=== PATIENT | male | born 1970 | race Two or more races ===

== ENCOUNTER → 2020-11-09 09:51 | Outpatient (BNVA) | payer MEDICAID, SELFPAY | PROVIDERS: PCP Internal Medicine; Visit Provider Orthopaedic Surgery | DX: M25.561 Pain in right knee (principal); M25.572 Pain in left ankle and joints of left foot; M25.461 Effusion, right knee; I10 Essential (primary) hypertension; Z88.0 Allergy status to penicillin | CPT/HCPCS: 99202 ==

== ENCOUNTER 2020-11-17 19:18 | Outpatient (REF) | payer MEDICAID, SELFPAY ==
--- NOTE | ~2020-11-17 | MR_ITS ---
EXAMINATION: MR KNEE WITHOUT CONTRAST, RIGHT CLINICAL INFORMATION: Right knee effusion. COMPARISON: None TECHNIQUE: MRI of the knee without contrast was performed using routine sequences on a high-field scanner. FINDINGS: MENISCI: Medial Meniscus: Intact. Lateral Meniscus: A bucket-handle tear propagates from the anterior root insertion through the posterior root insertion with displacement of the fragment into the intercondylar notch. The flap fragment constitutes the majority of the lateral meniscus with minimal residual orthotopic meniscal tissue at the posterior horn, body, and anterior horn. LIGAMENTS: Cruciate: The ACL is distorted by the adjacent bucket-handle fragment. No appreciable ACL tears, though sensitivity for mild laxity is limited by the slight deformation of the normal contour produced by the mass effect. PCL is normal. Collateral: Collateral ligaments are intact. Mild tendinosis at the popliteus origin. No tears. EXTENSOR MECHANISM: Marked heterogeneous thickening of the patellar tendon is noted, most consistent with a prior repair or patellar ORIF. Adjacent linear tracks are evident within the patella at the site of fixation. There is a residual longitudinal defect within the lateral fibers of the patellar tendon measuring 7 x 6 mm in cross section, corresponding to approximately 10 percent of the overall tendon cross-section. Fat from Hoffa's fat pad herniates into this defect. No acute tears. Quadriceps tendon is normal. Postsurgical scar tissue is evident with Hoffa's fat pad. At the anterolateral aspect of Hoffa's fat pad at the joint line, there is a rounded 1 x 0.8 x 0.8 cm focus of low signal intensity which may correspond to scar tissue. A chondral loose body is possible, though less likely. ARTICULAR CARTILAGE/BONE: Patellofemoral Compartment: There is mild nonuniform chondral thinning at the patella and trochlea with small marginal osteophytes. Medial Compartment: Tiny marginal osteophytes. Articular cartilage appears normal. Subcortical cystic changes of the tibial spines are likely related to the cruciate ligament insertions and may reflect early changes of mucoid degeneration. Lateral Compartment: There is severe articular cartilage loss at the posterior half of the lateral tibial plateau over an area measuring edema and cystic change. There is a small 3 x 5 cm partial-thickness chondral defect at the lateral third of the lateral femoral condyle weightbearing surface. More mild chondral thinning is present at the posterior nonweightbearing surface with focal full-thickness chondral fissuring superiorly as well as associated subchondral edema. JOINT FLUID AND BURSAE: Trace joint effusion. No Fry's cyst. MR/MR knee RT wo con IMPRESSION: 1. Displaced bucket-handle tear of the lateral meniscus involving the majority of the meniscal tissue. 2. [id number] lateral compartment osteoarthritis with high-grade cartilage loss at the posterior half of the lateral tibial plateau. 3. Minimal patellofemoral compartment osteoarthritis. 4. Postsurgical changes of the patellar tendon with a small residual longitudinal defect in the lateral fibers involving less than 10 percent of the tendon cross-section. No new tears. 5. A round 1 cm focus of low signal intensity material at the anterolateral margin of the joint line within Hoffa's fat pad, possibly scar tissue or a small loose body.
== END 2020-11-17 19:19 | disposition home or self-care (01) ==
LOC: HO.MRI 19:18
PROVIDERS: Visit Provider Orthopaedic Surgery
DX: M25.461 Effusion, right knee (principal)
CPT/HCPCS: 73721

== ENCOUNTER → 2020-11-23 09:10 | Outpatient (BNVA) | payer MEDICAID, SELFPAY | PROVIDERS: Visit Provider Orthopaedic Surgery | DX: M25.461 Effusion, right knee (principal) | CPT/HCPCS: 99212 ==

== ENCOUNTER 2022-02-25 15:10 | Outpatient (REF) | payer MEDICAID, SELFPAY ==
--- NOTE | ~2022-02-25 | XR_ITS ---
EXAMINATION: XR HAND, LEFT CLINICAL INFORMATION: Left finger pain. COMPARISON: None TECHNIQUE: PA, lateral, and oblique views of the left hand. FINDINGS: The bones and soft tissues are normal. No fracture. Alignment is anatomic. Joint spaces are maintained. A tiny periventricular calcifications is seen at the interphalangeal joint of the left thumb. No erosions or soft tissue calcifications. XR/XR hand LT min 3V IMPRESSION: Unremarkable left hand.
== END 2022-02-25 15:11 | disposition home or self-care (01) ==
LOC: HO.XRAY 15:10
PROVIDERS: Visit Provider Internal Medicine
DX: M79.645 Pain in left finger(s) (principal)
CPT/HCPCS: 73130

== ENCOUNTER 2022-03-29 11:33 | Outpatient (REF) | payer MEDICAID, SELFPAY ==
--- NOTE | ~2022-03-29 | XR_ITS ---
EXAMINATION: LUMBAR SPINE AND LEFT SHOULDER CLINICAL INFORMATION: Pain left shoulder COMPARISON: None TECHNIQUE: 3 views lumbar spine and 4 views left shoulder FINDINGS: Left shoulder: There is mild loss of AC joint and glenohumeral joint with inferior periarticular spurring glenohumeral and superior AC joint. No soft tissue calcification seen. No visible acute fracture, lytic or sclerotic process seen. The soft tissues are normal. XR/XR lumbar spine 2-3V IMPRESSION: Degenerative arthritic changes left AC joint and left glenohumeral joint. No visible acute fracture or dislocation seen.
--- NOTE | ~2022-03-29 | XR_ITS ---
EXAMINATION: LUMBAR SPINE AND LEFT SHOULDER CLINICAL INFORMATION: Pain left shoulder COMPARISON: None TECHNIQUE: 3 views lumbar spine and 4 views left shoulder FINDINGS: Left shoulder: There is mild loss of AC joint and glenohumeral joint with inferior periarticular spurring glenohumeral and superior AC joint. No soft tissue calcification seen. No visible acute fracture, lytic or sclerotic process seen. The soft tissues are normal. XR/XR shoulder LT min 2V IMPRESSION: Degenerative arthritic changes left AC joint and left glenohumeral joint. No visible acute fracture or dislocation seen.
== END 2022-03-29 11:34 | disposition home or self-care (01) ==
LOC: HO.XRAY 11:33
PROVIDERS: Visit Provider Internal Medicine
DX: M25.512 Pain in left shoulder (principal); M51.9 Unspecified thoracic, thoracolumbar and lumbosacral intervertebral disc disorder
CPT/HCPCS: 72100; 73030

== ENCOUNTER 2022-11-04 13:04 | Emergency (ER) | payer MEDICAID, SELFPAY ==
--- NOTE | ~2022-11-04 | US_ITS ---
EXAMINATION: US VENOUS ULTRASOUND WITH DOPPLER LOWER EXTREMITY, RIGHT CLINICAL INFORMATION: Right calf pain. COMPARISON: None available. TECHNIQUE: Ultrasound of the deep veins is performed from the hip to the calf with compression sonography and color and pulse Doppler assessment. Spectral analysis with color-flow imaging is performed. FINDINGS: There is normal venous compression and respiratory variation and augmented flow. The visualized common femoral vein, superficial femoral vein, profunda femoral vein, popliteal vein, and the trifurcation region shows no evidence of deep venous thrombosis. There is no significant popliteal fossa cyst. If the patient's symptoms persist, followup ultrasound in 5 days 7 days might be of value to exclude proximal propagation from a non-visualized calf vein. US/US venous duplex LE RT IMPRESSION: No DVT demonstrated in the right lower extremity.
--- NOTE | 2022-11-04 13:32 | ED_ITS ---
HPI - Extremity Problem General Chief complaint: Extremity Injury, Lower Stated complaint: Chronic R Leg Pain Time Seen by Provider: 11/04/22 13:17 History of Present Illness HPI Narrative: 52-year-old male the past medical history a septic bursa requiring 2 right knee surgeries and chronic right knee pain presents to the emergency department with complaints of worsening posterior knee and calf pain with minor swelling. He reports he was cleaning floors several days ago which exacerbated his knee pain. He reports he has been resting, compressing, ice, and elevating his leg in addition to taking [id number]-[id number] ibuprofen with little relief in pain. He denies any paresthesias, changes in gait or range of motion, fever, chills, recent trauma or injury. Pertinent positives and negatives discussed HPI. Related Data Home Medications Medication Instructions Recorded Confirmed lisinopril 20 mg tablet 20 mg PO DAILY 11/09/20 Previous Rx's Medication Instructions Recorded ibuprofen 800 mg tablet 800 mg PO TID PRN for pain #90 tabs 12/18/20 Allergies Allergy/AdvReac Type Severity Reaction Status Date / Time Penicillins [PENICILLINS] Allergy Intermediate HIVES Unverified 11/23/20 09:16 Review of Systems Review of Systems: Yes all other systems are reviewed and are negative PMFSH Past Medical History Attestation statement: The following information was validated with the patient. Source: old records reviewed and nursing notes reviewed Medical History HTN (hypertension) Knee effusion, right Surgical History History of right knee surgery [facility] Social History Social History Alcohol intake: current Alcohol intake frequency: holidays/special occasions only Advance Directives: No Advance Directives Information Provided: Yes Current occupational status: unemployed Current occupation: right handed. Physical Exam Vital Signs: Vital Signs: Last Vital Signs Temp 98.3 F 11/04/22 13:36 Pulse 86 11/04/22 13:36 Resp 18 11/04/22 13:36 BP 132/81 11/04/22 13:36 Pulse Ox 98 11/04/22 13:36 O2 Del Method Room Air 11/04/22 13:36 BMI result Body Mass Index 31.1 Nursing notes and vital signs reviewed. GENERAL APPEARANCE: A&0 x 4, generally well appearing, no acute distress HENMT: Normal to inspection, atraumatic, face symmetrical. Normal external ears, nose, and oropharynx clear. EYE: PERRLA, EOM intact, structures appear normal NECK: Supple without lymphadenopathy. No stiffness or restricted ROM. CHEST: Normal to inspection HEART: Normal rate and regular rhythm, normal S1/S2, no M/R/G LUNGS: LS CTA, moving air well. Able to speak in complete sentences. No crackles, wheezes, or rhonchi auscultated ABDOMEN: Soft, nontender, nondistended. Normal bowel sounds noted BACK: No CVAT, no obvious deformity EXTREMITIES: Moving all extremities without difficulty. Pain with palpation at posterior right knee. Right calf slightly larger than left. No cyanosis, clubbing, or edema. Normal capillary refill. NEUROLOGICAL: Alert and oriented, moving all 4 extremities with equal strength. CN not formally tested but appearing grossly intact. Observed to ambulate with normal gait. Cognition normal SKIN: Warm and dry without any lesions, rash, or visible sores PSYCH: Cooperative, normal affect, normal thought process Medications Administered Discontinued Medications Generic Name Dose Route Start Last Admin Trade Name Freq PRN Reason Stop Dose Admin Ketorolac Tromethamine 15 mg 11/04/22 13:30 11/04/22 13:58 Ketorolac Tromethamine 15 Mg/Ml Vial IM 11/04/22 13:31 15 mg ONCE ONE Administration Medical Decision Making Medical Decision Making [facility] Narrative: 1320: Old records reviewed for previous imaging, lab studies, ECGs, or notes. Patient was assessed the emergency department. No acute distress or toxicity noted. Patient is A&O x4, LS CTA, BABB x4 with good strength. Based on HPI and PE plan for toradol for c/o pain and US RLE to r/o DVT. 1425: I have independently interpreted the US RLE as negative for DVT. Pt symptoms are consistent with right knee strain. Low suspicion for tendon or ligament injury, fracture, dislocation, or infection. Patient is safe for discharge at this time with plan for [id number] Tylenol and/or NSAID such as ibuprofen or naproxen for fever/discomfort with dosing as per packaging. HPI, PE, diagnostics, and plan discussed with patient and family with no unanswered questions at this time. Strict return precautions given to return to the emergency department with new, worsening, or concerning emergent symptoms. Recommended to follow-up with there primary care provider in 24-48 hours for further treatment and management. Differential Diagnosis See above Discharge Plan Discharge Clinical Impression: Strain of right knee, Knee pain, right Patient Disposition: Home, Self-Care Instructions: Knee Pain (ED), R.I.C.E. Treatment (ED) Additional Instructions: Your seen in the emergency department for concerns Of right knee pain. Your ultrasound showed no signs of clots in the calf. Your symptoms are consistent with a right knee strain and exacerbation of chronic right knee pain. You are safe for discharge at this time with plan for management of fever or discomfort with [id number]-rtw-nripiht Tylenol and/or NSAID such as ibuprofen or naproxen with dosing as per packaging. Please return to the emergency department with new, worsening, or concerning emergent symptoms. Recommended to follow-up with your primary care provider in 24-48 hours for further treatment and management. Thank you for choosing [facility]. Prescriptions: No Action ibuprofen 800 mg tablet 800 mg PO TID PRN (Reason: for pain) Qty: 90 0RF lisinopril 20 mg tablet 20 mg PO DAILY Referrals: Uzma Matos MD [Primary Care Provider] - Print Language: Turkish
[2022-11-04 13:36] VITALS: BP 132/81; PULSE 86; RESP 18; TEMP 36.8; O2SAT 98; BMI 31.1
[2022-11-04] MEDS: Ketorolac Tromethamine 15 MG/ML VIAL IM (13:58)
== END 2022-11-04 14:34 | disposition home or self-care (01) ==
PROVIDERS: Emergency Provider Emergency Medicine Emergency Medical Services; PCP Internal Medicine
DX: M25.561 Pain in right knee (principal); R60.0 Localized edema
CPT/HCPCS: 93971; 96372; 99283; 99284; J1885

== ENCOUNTER 2022-11-15 16:41 | Outpatient (REF) | payer MEDICAID, SELFPAY ==
--- NOTE | ~2022-11-15 | XR_ITS ---
EXAMINATION: XR KNEE, RIGHT CLINICAL INFORMATION: Acute pain of right knee COMPARISON: MR scan right knee 11/17/2020 TECHNIQUE: Four views of the right knee. FINDINGS: The bones are intact. No fracture. Small joint effusion. Alignment is anatomic. There is mild narrowing of the patellofemoral joint compartment with marginal osteophyte formation. There is moderate to marked joint space narrowing of the lateral joint compartment. Tricompartment marginal osteophytes. There is marked soft tissue swelling inferior to the patella. There is a 0.6 cm density in the anterior aspect of Hoffa's fat pad which may represent a loose body within the joint. XR/XR knee RT 4V IMPRESSION: 1. Marked soft tissue swelling inferior to the patella. 2. Moderate to marked osteoarthritis of the lateral joint compartment and mild osteoarthritis of the patellofemoral joint compartment. 3. Question of loose body within the joint.
== END 2022-11-15 16:42 | disposition home or self-care (01) ==
LOC: HO.XRAY 16:41
PROVIDERS: Absent Provider Internal Medicine; PCP Internal Medicine; Visit Provider Family Medicine
DX: M25.561 Pain in right knee (principal)
CPT/HCPCS: 73564

== ENCOUNTER 2022-11-24 11:26 | Outpatient (REF) | payer MEDICAID, SELFPAY ==
--- NOTE | ~2022-11-24 | MR_ITS ---
EXAMINATION: MR KNEE WITHOUT CONTRAST, RIGHT CLINICAL INFORMATION: Medial right knee pain and crepitus. Swelling. Prior surgery. COMPARISON: Most recent right knee radiographs dated 11/15/2022 and right knee MRI dated 11/17/2020. TECHNIQUE: MRI of the knee without contrast was performed using routine sequences on a high-field scanner. FINDINGS: MENISCI: Medial Meniscus: Intact Lateral Meniscus: Redemonstration of a lateral meniscus bucket-handle tear with the majority of the meniscal volume displaced centrally. Tearing extends from the anterior root to the posterior root with significant attenuation and complex tearing of the non-displaced meniscal tissue. Overall, tearing appears similar when compared to the MRI dated 11/17/2020. LIGAMENTS: Cruciate: No evidence of acute ligament injury. Collateral: Intact EXTENSOR MECHANISM: Diffuse thickening and post surgical change redemonstrated throughout the patellar tendon, similar when compared to the prior examination. There is heterogeneity distally, slightly increased which may represent tendinosis. No new tendon tear or tendon retraction. ARTICULAR CARTILAGE/BONE: Patellofemoral Compartment: Mild articular cartilage signal heterogeneity with tiny marginal osteophytes, unchanged. Medial Compartment: Mild articular cartilage signal heterogeneity with tiny marginal osteophytes, unchanged. Lateral Compartment: Posterior lateral tibial plateau full-thickness articular cartilage loss with underlying subchondral cystic change. Posterior non-weightbearing lateral femoral condyle articular cartilage signal heterogeneity with subchondral cystic change. Marginal osteophytes. Findings are slightly progressed when compared to the prior examination. JOINT FLUID AND BURSAE: Trace joint effusion and trace Fry's cyst. MR/MR knee RT wo con IMPRESSION: 1. Redemonstration of a lateral meniscus bucket-handle tear with the majority of the meniscal volume displaced centrally. Tearing extends from the anterior root to the posterior root with significant attenuation and complex tearing of the nondisplaced meniscal tissue. Overall, tearing appears similar when compared to the MRI dated 11/17/2020. 2. Post surgical change redemonstrated throughout the patellar tendon with mild distal tendinosis, slightly increased when compared to the prior examination. No new tendon tear or tendon retraction. 3. Moderate lateral compartment osteophyte arthritis, slightly progressed. Mild patellofemoral and medial compartment osteoarthritis, unchanged. Trace joint effusion and trace Fry's cyst.
== END 2022-11-24 11:27 | disposition home or self-care (01) ==
LOC: HO.MRI 11:26
PROVIDERS: PCP Internal Medicine; Visit Provider Family Medicine
DX: M25.561 Pain in right knee (principal)
CPT/HCPCS: 73721

== ENCOUNTER 2023-05-30 11:07 | Outpatient (REF) | payer MEDICAID, SELFPAY ==
[2023-05-30 14:42] LABS: Appearance Urine Clear; Color Urine Yellow; Glucose Urine UA Negative (Negative); Leukocyte Esterase Urine Negative (Negative); Nitrite Urine Negative (Negative); Specific Gravity - Urine >= 1.030 (1.005-1.025); Urine Blood Negative (Negative); Urine Ketones Trace mg/dL (Negative); Urine Protein Negative (Neg-Trace)
[2023-05-30 14:44] LABS: Bacteria Urine None Seen (None Seen); Hyaline Casts Urine 0-2 /LPF (0-2); RBC Urine 0-2 /HPF (0-2); Squamous Epithelial Cell Urine 0-2 /HPF (0-2); WBC Urine 0-5 /HPF (0-5)
[2023-05-30 15:23] LABS: Anion Gap 14 (12-20); Blood Urea Nitrogen 23 mg/dL (9-16); Calcium 9.7 mg/dL (8.4-10.2); Carbon Dioxide 25 mmol/L (22-29); Chloride 103 mmol/L (96-108); Estimated Glomerular Filt Rate > 60; Glucose Random 188 mg/dL (60-115); Potassium 3.1 mmol/L (3.3-5.1); Sodium 139 mmol/L (135-145); TSH reflex Free T4 0.68 uIU/mL (0.32-4.0)
[2023-05-30 15:35] LABS: Folate 9.6 ng/mL (> or = 4.0); Vitamin B12 287 pg/mL (200-900)
== END 2023-05-30 11:08 | disposition home or self-care (01) ==
LOC: HO.CHCLDS 11:07
PROVIDERS: Visit Provider Internal Medicine
DX: R10.2 Pelvic and perineal pain (principal); K14.1 Geographic tongue
CPT/HCPCS: 36415; 80048; 81001; 82607; 82746; 84443

== ENCOUNTER 2023-06-09 14:04 | Outpatient (REF) | payer MEDICAID, SELFPAY ==
[2023-06-09 18:10] LABS: Appearance Urine Clear; Color Urine Yellow; Glucose Urine UA 100 mg/dL (Negative); Leukocyte Esterase Urine Negative (Negative); Nitrite Urine Negative (Negative); Specific Gravity - Urine >= 1.030 (1.005-1.025); Urine Blood Negative (Negative); Urine Ketones Negative (Negative); Urine Protein Negative (Neg-Trace)
[2023-06-09 18:12] LABS: Bacteria Urine None Seen (None Seen); Hyaline Casts Urine 0-2 /LPF (0-2); RBC Urine 0-2 /HPF (0-2); Squamous Epithelial Cell Urine 0-2 /HPF (0-2); WBC Urine 0-5 /HPF (0-5)
[2023-06-09 18:28] LABS: Anion Gap 14 (12-20); Blood Urea Nitrogen 18 mg/dL (9-16); Calcium 9.5 mg/dL (8.4-10.2); Carbon Dioxide 26 mmol/L (22-29); Chloride 105 mmol/L (96-108); Estimated Glomerular Filt Rate > 60; Glucose Random 215 mg/dL (60-115); Potassium 3.6 mmol/L (3.3-5.1); Sodium 141 mmol/L (135-145)
== END 2023-06-09 14:05 | disposition home or self-care (01) ==
LOC: HO.CHCLDS 14:04
PROVIDERS: Visit Provider Internal Medicine
DX: E87.6 Hypokalemia (principal)
CPT/HCPCS: 36415; 80048; 81001

== ENCOUNTER 2023-08-29 10:59 | Outpatient (REF) | payer MEDICAID, SELFPAY ==
[2023-08-30 19:43] LABS: Homocysteine 13.4 umol/L (<11.4)
[2023-09-02 07:03] LABS: Methylmalonic Acid 248 nmol/L (87-318)
== END 2023-08-29 11:00 | disposition home or self-care (01) ==
LOC: HO.CHCLDS 10:59
PROVIDERS: Visit Provider Internal Medicine
DX: K14.1 Geographic tongue (principal)
CPT/HCPCS: 36415; 83090; 83921

== ENCOUNTER 2023-10-11 09:56 | Outpatient (REF) | payer MEDICAID, SELFPAY ==
[2023-10-11 14:56] LABS: Appearance Urine Clear; Color Urine Yellow; Glucose Urine UA Negative (Negative); Leukocyte Esterase Urine Negative (Negative); Nitrite Urine Negative (Negative); PH 5.5 (5.0-9.0); Specific Gravity - Urine 1.025 (1.005-1.025); Urine Blood Negative (Negative); Urine Ketones Negative (Negative); Urine Protein Negative (Neg-Trace)
[2023-10-11 15:02] LABS: Bacteria Urine None Seen (None Seen); Hyaline Casts Urine 0-2 /LPF (0-2); RBC Urine 0-2 /HPF (0-2); Squamous Epithelial Cell Urine 0-2 /HPF (0-2); WBC Urine 0-5 /HPF (0-5)
[2023-10-11 16:54] LABS: Anion Gap 13 (12-20); Blood Urea Nitrogen 15 mg/dL (9-16); Calcium 9.8 mg/dL (8.4-10.2); Carbon Dioxide 25 mmol/L (22-29); Chloride 106 mmol/L (96-108); Estimated Glomerular Filt Rate > 60; Glucose Random 129 mg/dL (60-115); Potassium 3.9 mmol/L (3.3-5.1); Sodium 140 mmol/L (135-145)
== END 2023-10-11 09:57 | disposition home or self-care (01) ==
LOC: HO.CHCLDS 09:56
PROVIDERS: Visit Provider Internal Medicine
DX: R60.9 Edema, unspecified (principal)
CPT/HCPCS: 36415; 80048; 81001

== ENCOUNTER 2024-07-15 11:38 | Outpatient (REF) | payer MEDICAID, SELFPAY ==
[2024-07-15 14:29] LABS: MANUAL DIFF FLAG NO
[2024-07-15 14:37] LABS: Basophils Percent Auto 0.4 % (0-2); Eosinophils Absolute Auto 0.1 X10*3/uL (0.0-0.4); Eosinophils Percent Auto 1.4 % (0-4); Hematocrit 45.1 % (42.0-52.0); Imm Gran Abs Auto 0.02 X10*3/uL (0.00-0.03); Imm Gran Pct Auto 0.3 % (0.0-0.4); Lymphocytes Absolute Auto 2.2 X10*3/uL (1.2-4.9); Mean Corpuscular HGB Conc 35.5 g/dl (31.0-36.0); Mean Corpuscular Hemoglobin 30.2 pg (27.0-33.0); Mean Corpuscular Volume 85.3 fL (80.0-98.0); Mean Platelet Volume 11.6 fL (9.4-12.4); Monocytes Absolute Auto 0.5 X10*3/uL (0.1-1.2); Monocytes Percent Auto 6.9 % (2-11); Neutrophils Absolute Auto 4.4 x10*3/uL (2.0-8.3); Platelet Count 185 X10*3/uL (160-400); Red Blood Count 5.29 X10*6/uL (4.60-5.80); White Blood Count 7.2 X10*3/uL (4.8-10.8)
[2024-07-15 14:53] LABS: Anion Gap 12 (12-20); Blood Urea Nitrogen 21 mg/dL (9-16); Calcium 9.5 mg/dL (8.4-10.2); Carbon Dioxide 26 mmol/L (22-29); Chloride 106 mmol/L (96-108); Estimated Glomerular Filt Rate > 60; Glucose Random 100 mg/dL (60-115); Potassium 4.1 mmol/L (3.3-5.1); Sodium 140 mmol/L (135-145)
[2024-07-15 15:09] LABS: TSH reflex Free T4 1.94 uIU/mL (0.32-4.0)
[2024-07-15 15:23] LABS: Folate 10.2 ng/mL (> or = 4.0); Vitamin B12 223 pg/mL (200-900)
--- OUTSIDE RECORDS SUMMARY | 2024-07-15 16:34 | XMS_ITS | Clinical Summary ---
Author Organization [facility] it Address [address] [place] [address] Care Team Providers Care Mail Room Name Role Phone Uzma Matos MD Primary Care Provider [phone] Social History Tobacco Use Types Packs/Day Years Used Date Smoking Tobacco: Never Assessed Sex and Gender Information Value Date Recorded Sex Assigned at Not on file Gender Identity Not on file Sexual Orientation Not on file Last Filed Vital Signs Vital Sign Reading Time Taken Comments Blood Pressure - - Pulse - - Temperature - - Respiratory Rate - - Oxygen Saturation - - Inhaled Oxygen Concentration - - Weight 101 kg (222 lb) 09/27/2023 10:05 AM EDT Height 167.6 cm (5' 6 ) 09/27/2023 10:05 AM EDT Body Mass Index 35.83 09/27/2023 10:05 AM EDT Plan of Treatment Health Maintenance Due Date Last Done Comments Pneumococcal Vaccine: Pediat rics (0 to 5 Years) and At-Risk Patients (6 to 64 Years) (1 of 2 - PCV) 1974 DTaP,Tdap,and Td Vaccines (1 - Tdap) 08/31/1987 Hepatitis B Vaccines (1 of 3 - 19+ 3-dose series) 08/31/1987 Zoster Vaccines (1 of 2) 2018 COVID-19 Vaccine ( - 2023-2 5 season) 2024 Influenza Vaccine (#1) 2024 Cholesterol Screening (Lipid Panel) 05/14/2024 Colorectal Cancer Screening: Colonoscopy 05/14/2024 Depression Screening 05/14/2024 HIV Screening 05/14/2024 Hepatitis C Screening 05/14/2024 Social Influencers of Health Screening 05/14/2024 HIB Vaccines Aged Out No longer eligi ble based on patient's age to complete this topic HPV Vaccines Aged Out No longer eligi ble based on patient's age to complete this topic Hepatitis A Vaccines Aged Out No long er eligible based on patient's age to complete this topic IPV Vaccines Aged Out No longer eligi ble based on patient's age to complete this topic MMR Vaccines Aged Out No longer eligi ble based on patient's age to complete this topic Meningococcal ACWY Vaccine Aged Out N o longer eligible based on patient's age to complete this topic RSV Immunization Patients Un florentino 20 months Aged Out No longer eligible b ased on patient's age to complete this topic Varicella Vaccines Aged Out No longer eligible based on patient's age to complete this topic Care Teams Mail Room Relationship Specialty Start Date End Date Uzma Matos MD [address] [place] [address] PCP - General 08/04/23
== END 2024-07-15 11:39 | disposition home or self-care (01) ==
LOC: HO.CHCLDS 11:38
PROVIDERS: Visit Provider Internal Medicine
DX: R20.2 Paresthesia of skin (principal); E11.65 Type 2 diabetes mellitus with hyperglycemia
CPT/HCPCS: 36415; 80048; 82607; 82746; 84443; 85025

== ENCOUNTER 2025-03-29 14:09 | Outpatient (REF) | payer MEDICAID, SELFPAY ==
--- OUTSIDE RECORDS SUMMARY | 2025-03-29 12:20 | XMS_ITS | Encounter Summary ---
Author Organization [employer] Address [address] [place] [address] 7[address] [place] [address] Care Team Providers Care Passenger Service Supervisor Name Role Phone Uzma Matos MD Primary Care Provider [phone] Josette Peterson RN Unavailable [phone] Veronika Liu Unavailable Reason for Referral * Consultation (Routine) - Pending Review Specialty Diagnoses / Procedures Referred By Tanmay strauss Referred To Contact Otolaryngology Diagnoses Anosmia Hypogeusia Gabriel Tang MD [address] [place] [phone] Phone: tel: fax: Referral ID Status Reason Start Date Expiration Date Visits Requested Visits Authorized [id number] Pending Review Specialty Services Required 5 03/29/2026 1 1 Encounter Details Date Type Department Care Team (Late st Contact Info) Description 03/29/2025 12:20 PM EDT Office Visit [facility] [address] [place] [address] [phone] Gabriel Tang MD [address] [place] [address] [phone] Anosmia (Primary Dx); Hypogeusia Social History Tobacco Use Types Packs/Day Years Used Date Smoking Tobacco: Former Cigarettes Passive Smoke Exposure: Never Alcohol Use Standard Drinks/Week Comments Never 0 (1 standard drink = 0.6 oz pur e alcohol) Alcohol Answer Date Recorded How often do you have a drink containing alcohol ? 1 11/27/2024 How many drinks containing a lcohol do you have on a typical day when you are drinking? 0 11/27/2024 How often do you have six or more drinks on one occasion? 0 11/27/2024 Depression Answer Date Recorded Patient Health Questionnaire-9 Score 8 11/27/2024 Patient Health Questionnaire-9 Score 8 11/27/2024 Last PHQ-9: Questionnaire Data Not on file 0 11/27/2024 Housing Stability Answer Date Recorded What is your housing situation today? I have tad [place]ano 07/15/[address] you li ve. Do you have problems with any of the following? None of the above 07/15/2024 Food Insecurity Answer Date Recorded Within the past 12 months, y ou worried that your food would run out before you got money to buy more: Never True 2024 Within the past 12 months,th e food you bought just didn't last and you didn't have enough money to get more: Sometimes True 11/27/2024 Transportation Answer Date Recorded In the past 12 months, has l ack of transportation kept you from medical appts, meetings, work or from getting things needed for daily living? No 07/15/2024 Utilities Answer Date Recorded In the past 12 months, has t he electric, gas, oil or water company threatened to shut off services in your home? No 07/15/2024 Depression Answer Date Recorded Patient Health Questionnaire-2 Score 4 11/27/2024 Internet Access Answer Date Recorded Internet Access Q1 Yes 07/15/2024 Internet Access Q2 Not on file 07/15/2024 Sex and Gender Information Value Date Recorded Sex Assigned at Male 04/18/2022 10:21 AM EDT Legal Sex Male 10:21 AM EDT Gender Identity Male 04/18/2022 10:21 AM EDT Sexual Orientation Straight 04/18/2022 10 :21 AM EDT documented as of this encounter Last Filed Vital Signs Vital Sign Reading Time Taken Comments Blood Pressure 159/99 03/29/2025 11:57 AM EDT Pulse 73 03/29/2025 11:57 AM EDT Temperature 36.8 C (98.3 F) 03/29/2025 11:57 AM EDT Respiratory Rate 21 03/29/2025 11:57 AM EDT Oxygen Saturation 98% 03/29/2025 11:57 AM EDT Inhaled Oxygen Concentration - - Weight 89.4 kg (197 lb) 03/29/2025 11:57 AM EDT Height 167.6 cm (5' 6 ) 03/29/2025 11:57 AM EDT Body Mass Index 31.8 03/29/2025 11:57 AM EDT documented in this encounter Progress Notes * Gabriel Tang MD - 03/29/2025 12:20 PM EDT Subjective History was provided by the patient. Ty Quijano is a 54 y.o. 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 States his symptoms began after cleaning out his uncle's house (the place had bad odor and he usedchemical cleaning agents). Did not bring up this concern to PCP. He went to an outside urgent care in [place] on 03/25/2025. He was recommended to use Flonase (started using 2 days ago). He currently has no sense of smell, and diminished sense of taste). He does not recall any URI or sinusitis symptoms at the onset of his symptoms. States he has a fairly healthy diet. He has a distant history of nasal bone fracture as a child. Subsequently he had a repair in 2011, which alleviated his PATRICIO symptoms. No longer requiring CPAP machine since the surgery. Denies current congestion, rhinorrhea, sore throat, cough, or F/C/N/V/D. Objective Vitals: 03/29/25 1157 BP: (!) 159/99 BP Location: Left arm Patient Position: Sitting BP Cuff Size: Adult Pulse: 73 Resp: 21 Temp: 98.3 ??F (36.8 ??C) TempSrc: Oral SpO2: 98% Weight: 197 lb (89.4 kg) Height: 5' 6 (1.676 m) Physical Exam Vitals reviewed. Constitutional: Appearance: Normal appearance. HENT: Head: Normocephalic and atraumatic. Right Ear: Tympanic membrane, ear canal and external ear normal. Left Ear: Tympanic membrane, ear canal and external ear normal. Nose: Nose normal. No congestion or rhinorrhea. Comments: Patent anterior nasal cavities without erythema or edema Mouth/Throat: Mouth: Mucous membranes are dry. Pharynx: Oropharynx is clear. No oropharyngeal exudate or posterior oropharyngeal erythema. Eyes: Extraocular Movements: Extraocular movements intact. Conjunctiva/sclera: Conjunctivae normal. Cardiovascular: Rate and Rhythm: Normal rate and regular rhythm. Heart sounds: Normal heart sounds. Pulmonary: Effort: Pulmonary effort is normal. No respiratory distress. Breath sounds: Normal breath sounds. No wheezing, rhonchi or rales. Chest: Chest wall: No tenderness. Musculoskeletal: Cervical back: Neck supple. Lymphadenopathy: Cervical: No cervical adenopathy. Skin: General: Skin is warm and dry. Neurological: General: No focal deficit present. Mental Status: He is alert and oriented to person, place, and time. Psychiatric: Mood and Affect: Mood normal. Behavior: Behavior normal. Office Visit on 03/29/2025 Component Date Value Ref Range Status Rapid COVID Ag 03/29/2025 Negative Final QC Media Lot # 03/29/2025 [id number] Final Lot# Expiration Date 03/29/2025 [id number] Final Diagnoses and all orders for this visit: Anosmia (Primary) - POCT Rapid Covid-19 BinaxNOW - CBC auto differential; Future - Comprehensive Metabolic Panel; Future - Zinc; Future - Vitamin B12/Folate, Serum Panel; Future - Sed Rate by Modified Westergren; Future - C-reactive Protein; Future - KASH Screen,IFA, with Reflex to Titer and Pattern; Future - TSH W/Reflex to FT4; Future - Referral to ENT; Future Hypogeusia - Referral to ENT; Future Patient [facility] to [facility] due to anosmia and hypogeusia since 10/2024 First time seeking care for this other than outside urgent care ([facility]) visit on 03/25/2025 Nasal Flonase prescribed; advised to continue to see if any improvement No physical findings on exam today Rapid COVID-19 negative today Check CBC, CMP, Zinc, Vitamin B12, ESR, CRP, KASH, and TSH for further evaluation Patient is inquiring about ENT referral Referral submitted Indications for UC/ER use reviewed Advised to contact the clinic if persistent or worsening symptoms documented in this encounter Plan of Treatment Scheduled Orders Name Type Priority Associated Diagnoses Orde r Schedule CBC auto differential Lab Routine Anosmia Expected: 03/29/2025 (Approximate), Expires: 03/29/2026 Comprehensive Metabolic Panel Lab Routine Anosmia Expected: 03/29/2025 (Approximate), Expires: 03/29/2026 Zinc Lab Routine Anosmia Expected: 03/29/2025 (Approximate), Expires: 03/29/2026 Vitamin B12/Folate, Serum Panel Lab Routine Anosmia Expected: 03/29/2025, Expires: 03/29/2026 Sed Rate by Modified Westergren Lab Routine Anosmia Expected: 03/29/2025, Expires: 03/29/2026 C-reactive Protein Lab Routine Anosmia Expected: 03/29/2025 (Approximate), Expires: 03/29/2026 KASH Screen,IFA, with Reflex to Titer and Pattern Lab Routine Anosmia Expected: 03/29/2025 (Approximate), Expires: 03/29/2026 TSH W/Reflex to FT4 Lab Routine Anosmia Expected: 03/29/2025 (Approximate), Expires: 03/29/2026 Scheduled Referrals Name Type Priority Associated Diagnoses Orde r Schedule Referral to ENT Outpatient Referral Routine Anosmia Hypogeusia Expected: 03/29/2025 (Approximate), Expires: 03/29/2026 documented as of this encounter Procedures Procedure Name Priority Date/Time Associated Diagnosis Comments POCT RAPID COVID ANTIGEN Routine 03/29/2025 12:00 PM EDT Anosmia documented in this encounter Results * POCT Rapid Covid-19 BinaxNOW (03/29/2025 12:00 PM EDT) [facility] Rapid COVID Ag Negative QC Media Lot # [id number] Lot# Expiration Date [id number] Swab 03/29/2025 12:0 0 PM EDT Gabriel Tang MD POINT OF CARE TEST ENTER/EDIT OR DERABLES Final Result documented in this encounter Visit Diagnoses Diagnosis Anosmia- Primary Disturbances of sensation of smell and taste Hypogeusia documented in this encounter Additional Health Concerns Assessment Noted Time PHQ-9 Depression Total Score: 8 11/28/19 25 10:42 AM EDT documented as of this encounter Care Teams Passenger Service Supervisor Relationship Specialty Start Date End Date Uzma Matos MD [address] [place] [address] PCP - General Internal Medicine 11/03/11 Josette Peterson RN [address] [place] [address] Registered Nurse Family Medicine 03/25/25 Veronika Liu 03/25/25 documented as of this encounter
--- OUTSIDE RECORDS SUMMARY | 2025-03-29 14:13 | XMS_ITS | Clinical Summary ---
Author Organization [facility] Address [address] [place] [phone] Phone Care Team Providers Care Hand Thermal Cutter Name Role Phone Uzma Matos MD Primary Care Provider [phone] Allergies No known active allergies Medications albuterol HFA (PROAIR HFA ; PROVENTIL HFA ; VENTOLIN HFA) 90 mcg/actuation inhaler Inhale 2 puffs by mouth every 4 (four) hours if needed for wheezing. 1 each 10/27/2024 Active Social History Tobacco Use Types Packs/Day Years Used Date Smoking Tobacco: Never Smokeless Tobacco: Never Tobacco Cessation:Counseling Given: Not Answered Sex and Gender Information Value Date Recorded Sex Assigned at Not on file Legal Sex Male 12:54 PM EST Gender Identity Not on file Sexual Orientation Not on file Obstetrics History Last Filed Vital Signs Vital Sign Reading Time Taken Comments Blood Pressure 129/76 10/27/2024 2:54 PM EDT Pulse 102 10/27/2024 2:54 PM EDT Temperature 38.2 C (100.8 F) 10/27/2024 2:54 PM EDT Respiratory Rate 20 10/27/2024 2:54 PM EDT Oxygen Saturation 95% 10/27/2024 2:54 PM EDT Inhaled Oxygen Concentration - - Weight 95.3 kg (210 lb) 10/27/2024 2:54 PM EDT Height 167.6 cm (5' 6 ) 10/27/2024 2:54 PM EDT Body Mass Index 33.89 10/27/2024 2:54 PM EDT Plan of Treatment Health Maintenance Due Date Last Done Comments Colorectal Cancer Screening: Colonoscopy 1968 Hepatitis B Vaccines (1 of 3 - 19+ 3-dose series) 08/31/1987 Pneumococcal Vaccine: 50+ Years (1 of 1 - PCV) 2018 Zoster Vaccines (1 of 2) 2018 Hepatitis C Screening 05/14/2024 Social Influencers of Health Screening 05/14/2024 Depression Screening 06/19/2024 Hypertension/CHF/CAD Annual BMP Blood Test 10/27/2024 COVID-19 Vaccine (3 - season) 2025 10/29/2020, 10/01/2020 Influenza Vaccine (#1) 2025 , 04/10/2018, 08/15/2016, Additional history exists Cholesterol Screening (Lipid Panel) 03/29/2027 03/29/2022 DTaP,Tdap,and Td Vaccines (4 - Td or Tdap) 03/03/2034 03/03/2024, 08/15/2016, 10/13/2010 RSV Immunization Adult Patients (1 - 1-dose 75+ series) 08/31/2043 HIV Screening Completed 03/29/2022 HIB Vaccines Aged Out No longer eligi [...] patient's age to complete this topic Meningococcal B Vaccine Aged Out No l onger eligible based on patient's age to complete this topic RSV Immunization Patients Under 20 months Aged Out No longer eligible based on patient's age to complete this topic Varicella Vaccines Aged Out No longer eligible based on patient's age to complete this topic Insurance MEDICAID - [place] Care Teams Hand Thermal Cutter Relationship Specialty Start Date End Date Uzma Matos MD [address] [place] [address] PCP - General 08/04/23
--- OUTSIDE RECORDS SUMMARY | 2025-03-29 14:13 | XMS_ITS | Encounter Summary ---
Author Organization [email or web address] Address [address] [place] [address] Care Team Providers Care Slot Editor Name Role Phone Uzma Matos MD Primary Care Provider [phone] Josette Peterson RN Unavailable [phone] Veronika Liu Unavailable Encounter Details Date Type Department Care Team (Latest Contact Info) Description 03/29/2025 Travel Social History Tobacco Use Types Packs/Day Years [...] AM EDT documented as of this encounter Plan of Treatment Not on file documented as of this encounter Visit Diagnoses Not on filedocumented in this encounter Additional Health Concerns Assessment Noted Time PHQ-9 Depression Total Score: 8 11/28/19 25 10:42 AM EDT documented as of this encounter Care Teams Slot Editor Relationship Specialty Start Date End Date Uzma Matos MD [address] [place] [address] PCP - General Internal Medicine 11/03/11 Josette Peterson RN [address] [place] [address] Registered Nurse Family Medicine 03/25/25 Veronika Liu 03/25/25 documented as of this encounter
--- OUTSIDE RECORDS SUMMARY | 2025-03-29 14:13 | XMS_ITS | Encounter Summary ---
Author Organization [employer] Address [address] [facility] [address]t [place] [address] Care Team Providers Care Scrap Kettle Tender Name Role Phone Uzma Matos MD Primary Care Provider [phone] Josette Peterson RN Unavailable [phone] Veronika Liu Unavailable Reason for Visit * Reason Comments Care Management C3- chart review Encounter Details Date Type Department Care Team ([facility] st Contact Info) Description 03/25/2025 Patient Outreach [facility] [address] [place] [address] Uzma Matos MD [address] [place] [address] Care Management ([facility]- chart review) Social History Tobacco Use Types Packs/Day Years [...] AM EDT documented as of this encounter Progress Notes * Josette Peterson RN - 03/25/2025 9:03 AM EDT ARIC Peterson RN, performed chart review, in anticipation of initial assessment with patient, as patient has stratified for C3 Adult Complex Care through the ADT feed. 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 Specialists include [facility] Card[facility] and Ortho. ED visits within the last 12 months include [facility] ED 03/24/25. Last appointment in PCP office on11/27/24. No future appointments scheduled at this time. documented in this encounter Plan of Treatment Not on file documented as of this encounter Visit Diagnoses Not on filedocumented in this encounter Additional Health Concerns Assessment Noted Time PHQ-9 Depression Total Score: 8 11/28/19 25 10:42 AM EDT documented as of this encounter Care Teams Scrap Kettle Tender Relationship Specialty Start Date End Date Uzma Matos MD [address] [place] [address] PCP - General Internal Medicine 11/03/11 Josette Peterson RN [address] [place] [address] Registered Nurse Family Medicine 03/25/25 Veronika Liu 03/25/25 documented as of this encounter
--- OUTSIDE RECORDS SUMMARY | 2025-03-29 14:13 | XMS_ITS | Encounter Summary ---
Author Organization [employer] Address [address] [facility] [address] [place] [address] Care Team Providers Care Machine Plaster Mixer Name Role Phone Uzma Matos MD Primary Care Provider [phone] Josette Peterson RN Unavailable Veronika Liu Unavailable Reason for Visit * Reason Comments Med Change Request Encounter Details Date Type Department Care Team ([facility] Contact Info) Description 03/26/2023 Refill [facility] [address] [place], [place] [phone] Uzma Matos MD [address] [place], [place] [phone] Social History Tobacco Use Types Packs/Day Years Used Date Smoking Tobacco: Some Days Cigarettes Passive Smoke Exposure: Never Alcohol Use Standard Drinks/Week Comments Never 0 (1 standard drink = 0.6 oz pur e alcohol) Alcohol Answer Date Recorded How often do you have a drink containing alcohol ? 1 06/02/2022 How many drinks containing a lcohol do you have on a typical day when you are drinking? 0 06/02/2022 How often do you have six or more drinks on one occasion? 1 06/02/2022 Depression Answer Date Recorded Patient Health Questionnaire-9 Score 6 06/02/2022 Housing Stability Answer Date Recorded What is your housing situation today? I have tad solano 03/26/[address] you li ve. Do you have problems with any of the following? None of the above 03/26/2023 Food Insecurity Answer Date Recorded Within the past 12 months, y ou worried that your food would run out before you got money to buy more: Never True 03/26/2023 Within the past 12 months,th e food you bought just didn't last and you didn't have enough money to get more: Never True 01/2023 Transportation Answer Date Recorded In the past 12 months, has l ack of transportation kept you from medical appts, meetings, work or from getting things needed for daily living? No 03/26/2023 Utilities Answer Date Recorded In the past 12 months, has t he [employer], gas, oil or water company threatened to shut off services in your home? No 03/26/2023 Depression Answer Date Recorded Patient Health Questionnaire-2 Score 2 06/02/2022 Sex and Gender Information Value Date Recorded [...] Assessment Noted Time PHQ-9 Depression Total Score: 6 06/02/20 22 9:19 AM EST documented as of this encounter Care Teams Machine Plaster Mixer Relationship Specialty Start Date End Date Uzma Matos MD [address] [place] [address] PCP - General Internal Medicine 11/03/11 Josette Peterson RN [address] [place] [address] Registered Nurse Family Medicine 03/25/25 Veronika Liu 03/25/25 documented as of this encounter
--- OUTSIDE RECORDS SUMMARY | 2025-03-29 14:13 | XMS_ITS ---
Author Organization [email or web address] Address [address] [place] [address] [address] [place] [address] Care Team Providers Care Animal Sticker Name Role Phone Uzma Matos MD Primary Care Provider [phone] Josette Peterson RN Unavailable [phone] Veronika Liu Unavailable CM Complex Status:Outreach In Progress (Enrolling) Start date:03/25/2025 Enrollment reason:ADT Feed Overview ED- Pt went to [facility] on 03/24/25. Case Team Name Relationship Phone Josette Peterson RN(Responsible Staff) Registered Nurse [phone] Continued Care and Services Coordination
--- OUTSIDE RECORDS SUMMARY | 2025-03-29 14:13 | XMS_ITS | Encounter Summary ---
Author Organization [employer] Address [address] [facility] [address] [place] [address] Care Team Providers Care School Office Manager Name Role Phone Uzma Matos MD Primary Care Provider [phone] Josette Peterson RN Unavailable [phone] Veronika Liu Unavailable Encounter Details Date Type Department Care Team ([facility] st Contact Info) Description 05/23/2023 Orders Only [facility] [address] [place] [address] Uzma Matos MD [address] [place] [address] Acute pain of right knee (Primary Dx); Hypokalemia Social History Tobacco Use Types Packs/Day Years [...] housing situation today? I have tad solano 04/03/[address] you li ve. Do you have problems with any of the following? None of the above 04/03/2023 Food Insecurity Answer Date Recorded Within the past 12 months, y ou worried that your food would run out before you got money to buy more: Never True 04/03/2023 Within the past 12 months,th e food you bought just didn't last and you didn't have enough money to get more: Never True Transportation Answer Date Recorded In the past 12 months, has l ack of transportation kept you from medical appts, meetings, work or from getting things needed for daily living? No 04/03/2023 Utilities Answer Date Recorded In the past 12 months, has t he [employer], gas, oil or water company threatened to shut off services in your home? No 04/03/2023 Depression Answer Date Recorded Patient Health Questionnaire-2 Score 2 06/02/2022 Sex and Gender Information Value Date Recorded Sex Assigned at Male 04/18/2022 10:21 AM EDT Legal Sex Male 10:21 AM EDT Gender Identity Male 04/18/2022 10:21 AM EDT Sexual Orientation Straight 04/18/2022 10 :21 AM EDT documented as of this encounter Plan of Treatment Not on file documented as of this encounter Procedures Procedure Name Priority Date/Time Associated Diagnosis Comments URINALYSIS, COMPLETE Routine 06/09/2023 2:10 PM EST Hypokalemia BASIC METABOLIC PANEL Routine 06/09/2023 2:05 PM EST Hypokalemia documented in this encounter Results * (ABNORMAL) Urinalysis Complete (06/09/2023 2:10 PM EST) Color Urine Yellow [facility] Appearance Urine Clear [facility] PH 6.0 5.0 - 9.0 [facility] Glucose Urine UA 100(A) Negative mg/dL [facility] Urine Blood Negative Negative [facility] Specific [place] - Urine >=1.030(H) 1.005 - 1.025 [facility] Urine Protein Negative Neg-Trace mg/dL [facility] Urine Ketones Negative Negative mg/dL [facility] Nitrite Urine Negative Negative [facility] Leukocyte Esterase Urine Negative Negative [facility] RBC Urine 0-2 0 - 2 /HPF [facility] Urine WBC 0-5 0 - 5 /HPF [facility] Urine Squamous Epithelial Cell 0-2 0 - 2 /HPF [facility] Urine Bacteria None Seen None Seen [facility] Hyaline Casts, Urine 0-2 0 - 2 /LPF [facility] Urine Urine specimen obtained by clean catch procedure / Unknown 06/09/2023 2:10 PM EST 06/09/2023 6:00 PM EST us Uzma Matos MD LAB URINE ORDERABLES Final Result [facility] [address] [place] [phone] * (ABNORMAL) Basic Metabolic Panel (06/09/2023 2:05 PM EST) Sodium 141 135 - 145 mmol/L [facility] Potassium 3.6 3.3 - 5.1 mmol/L [facility] Chloride 105 96 - 108 mmol/L [facility] Carbon Dioxide 26 22 - 29 mmol/L [facility] Anion Gap 14 12 - 20 [facility] Urea Nitrogen (BUN) 18(H) 9 - 16 mg/dL [facility] Creatinine, Serum 0.86 0.5 - 1.4 mg/dL [facility] Estimated Glomerular Filt Rate >60 [facility] Comment:NOTE: For -Am erican individuals, multiply the result by 1.210.Chronic Kidney Disease: Estimated GFR < 60 mL/min/[id number] Kidney Disease: Estimated GFR < 15 mL/min/1.73m2 Glucose 215(H) 60 - 115 mg/dL [facility] Calcium 9.5 8.4 - 10.2 mg/dL [facility] Blood Venous blood specimen / Unknown 06/09/2023 2:05 PM EST 06/09/2023 6:00 PM EST us Uzma Matos MD LAB BLOOD ORDERABLES Final Result [facility] [address] [place] [phone] documented in this encounter Visit Diagnoses Diagnosis Acute pain of right knee- Primary Hypokalemia Hypopotassemia documented in this encounter Additional Health Concerns Assessment Noted Time PHQ-9 Depression Total Score: 6 06/02/20 22 9:19 AM EST documented as of this encounter Care Teams School Office Manager Relationship Specialty Start Date End Date Uzma Matos MD [address] [place] [address] PCP - General Internal Medicine 11/03/11 Josette Peterson RN [address] [place] [address] Registered Nurse Family Medicine 03/25/25 Veronika Liu 03/25/25 documented as of this encounter
--- OUTSIDE RECORDS SUMMARY | 2025-03-29 14:13 | XMS_ITS | Encounter Summary ---
Author Organization [employer] Address [address] [facility] 7t [place] [address] Care Team Providers Care Certified Mortician Name Role Phone Uzma Matos MD Primary Care Provider [phone] Josette Peterson RN Unavailable [phone] Veronika Liu Unavailable Reason for Visit * Reason Comments Med Change Request Encounter Details Date Type Department Care Team ([facility] Contact Info) Description 03/30/2023 Refill [facility] CHC MED & PEDS [address] [place] [address] Uzma Matos MD [address] [place], [place] [phone] Cervicogenic headache; Muscle spasm Social History Tobacco Use Types Packs/Day Years [...] documented as of this encounter Visit Diagnoses Diagnosis Cervicogenic headache Headache Muscle spasm Spasm of muscle documented in this encounter Additional Health Concerns Assessment Noted Time PHQ-9 Depression Total Score: 6 06/02/20 22 9:19 AM EST documented as of this encounter Care Teams Certified Mortician Relationship Specialty Start Date End Date Uzma Matos MD [address] [place] [address] PCP - General Internal Medicine 11/03/11 Josette Peterson RN [address] [place] [address] Registered Nurse Family Medicine 03/25/25 Veronika Liu 03/25/25 documented as of this encounter
--- OUTSIDE RECORDS SUMMARY | 2025-03-29 14:13 | XMS_ITS | Encounter Summary ---
Author Organization [employer] Address [address] [facility] 7t [place] [address] Care Team Providers Care Service Plumber Name Role Phone Uzma Matos MD Primary Care Provider [phone] Josette Peterson RN Unavailable [phone] Veronika Liu Unavailable Encounter Details Date Type Department Care Team ([facility] st Contact Info) Description 07/16/2024 Orders Only [facility] CHC MED & PEDS [address] [place] [address] Uzma Matos MD [address] [place] [address] Paresthesia (Primary Dx) Social History Tobacco Use Types Packs/Day Years [...] Answer Date Recorded Patient Health Questionnaire-9 Score 0 07/15/2024 Patient Health Questionnaire-9 Score 0 07/15/2024 Last PHQ-9: Questionnaire Data Not on file 0 07/15/2024 Housing Stability Answer Date Recorded What is [...] got money to buy more: Never True 07/15/2024 Within the past 12 months,th e food [...] Answer Date Recorded Patient Health Questionnaire-2 Score 0 07/15/2024 Internet Access Answer Date Recorded Internet Access Q1 Yes 07/15/2024 Internet Access Q2 Not on file 07/15/2024 Sex and Gender Information Value Date Recorded Sex Assigned at Male 04/18/2022 10:21 AM EDT Legal Sex Male 10:21 AM EDT Gender Identity Male 04/18/2022 10:21 AM EDT Sexual Orientation Straight 04/18/2022 10 :21 AM EDT documented as of this encounter Plan of Treatment Scheduled Orders Name Type Priority Associated Diagnoses Orde r Schedule Methylmalonic Acid Lab Routine Paresthesia Expected: 07/16/2024 (Approximate), Expires: 07/16/2025 Homocysteine Lab Routine Paresthesia Expected: 07/16/2024 (Approximate), Expires: 07/16/2025 documented as of this encounter Visit Diagnoses Diagnosis Paresthesia- Primary Disturbance of skin sensation documented in this encounter Additional Health Concerns Assessment Noted Time PHQ-9 Depression Total Score: 0 07/15/19 25 10:42 AM EST documented as of this encounter Care Teams Service Plumber Relationship Specialty Start Date End Date Uzma Matos MD [address] [place] [address] PCP - General Internal Medicine 11/03/11 Josette Peterson RN [address] [place] [address] Registered Nurse Family Medicine 03/25/25 Veronika Liu 03/25/25 documented as of this encounter
--- OUTSIDE RECORDS SUMMARY | 2025-03-29 14:13 | XMS_ITS ---
Author Organization [employer] Address [address] [place] [address] 7t [place] [address] Care Team Providers Care Food Production Worker Name Role Phone Uzma Matos MD Primary Care Provider [phone] Josette Peterson RN Unavailable [phone] Veronika Liu Unavailable CH[facility] Complex Status:Outreach In Progress (Enrolling) Start date:03/25/2025 Enrollment reason:ADT Feed Overview ED- Pt went to [facility] on 03/24/25. Please outreach for enrollment. Case Team Name Relationship Phone Veronika Liu(Responsible Staff) [phone] Continued Care and Services Coordination
--- OUTSIDE RECORDS SUMMARY | 2025-03-29 14:13 | XMS_ITS | Encounter Summary ---
Author Organization [employer] Address [address] [facility] [address] [place] [address] Care Team Providers Care Wicker Molded Candles Name Role Phone Uzma Matos MD Primary Care Provider [phone] Josette Peterson RN Unavailable [phone] Veronika Liu Unavailable Reason for Visit * Reason Onset Date Comments Prior Authorization 11/20/2023 Encounter Details Date Type Department Care Team ([facility] Contact Info) Description 11/20/2023 Telephone [facility] MED & PEDS [address] [place] [address] Uzma Matso MD [address] [place] [address] Prior Authorization Social History Tobacco Use Types Packs/Day Years [...] as of this encounter Visit Diagnoses Diagnosis New onset type 2 diabetes mellitus (HCC) documented in this encounter Additional Health Concerns Assessment Noted Time PHQ-9 Depression Total Score: 6 06/02/20 22 9:19 AM EST documented as of this encounter Care Teams Wicker Molded Candles Relationship Specialty Start Date End Date Uzma Matos MD [address] [place] [address] PCP - General Internal Medicine 11/03/11 Josette Peterson, SAAD [address] [place] [address] Registered Nurse Family Medicine 03/25/25 Veronika Liu 03/25/25 documented as of this encounter
--- OUTSIDE RECORDS SUMMARY | 2025-03-29 14:13 | XMS_ITS | Encounter Summary ---
Author Organization [employer] Address [address] [facility] 7t [place] [address] Care Team Providers Care Mud Jack Nozzleman Name Role Phone Uzma Matos MD Primary Care Provider [phone] Josette Peterson RN Unavailable [phone] Veronika Liu Unavailable Encounter Details Date Type Department Care Team (Late st Contact Info) Description 10/28/2024 Orders Only [facility] [address] [place] [address] Provider, MD Becky Social History Tobacco Use Types Packs/Day Years [...] Procedure Name Priority Date/Time Associated Diagnosis Comments XR CHEST 2 VIEWS Routine 10/27/2024 12:01 PM EDT documented in this encounter Results * XR Chest 2 Views (10/27/2024 12:01 PM EDT) Anatomical Region Laterality Modality Chest Radiographic Dariana ging us Historical Provider MD PERALTA XR PROCEDURES Final R esult documented in this encounter Visit Diagnoses Not on filedocumented in this encounter Additional Health Concerns Assessment Noted Time PHQ-9 Depression Total Score: 0 07/15/19 25 10:42 AM EST documented as of this encounter Care Teams Mud Jack Nozzleman Relationship Specialty Start Date End Date Uzma Matos MD [address] [place] [address] PCP - General Internal Medicine 11/03/11 Josette Peterson RN [address] [place] [address] Registered Nurse Family Medicine 03/25/25 Veronika Liu 03/25/25 documented as of this encounter
--- OUTSIDE RECORDS SUMMARY | 2025-03-29 14:13 | XMS_ITS | Encounter Summary ---
Author Organization [employer] Address [address] [facility] 7 [place] [address] Care Team Providers Care Technology Auditor Name Role Phone Uzma Matos MD Primary Care Provider [phone] Reason for Visit * Reason Comments Med Refill Encounter Details Date Type Department Care Team ([facility] Contact Info) Description 03/24/[address] [facility] CHC MED & PEDS [address] [place] [address] Sally Babcock MD [address] [place] [address] Primary hypertension; Primary hypertension Social History Tobacco Use Types Packs/Day Years [...] as of this encounter Visit Diagnoses Diagnosis Primary hypertension Unspecified essential hypertension documented in this encounter Additional Health Concerns Assessment Noted Time PHQ-9 Depression Total Score: 8 11/28/19 25 10:42 AM EDT documented as of this encounter Care Teams Technology Auditor Relationship Specialty Start Date End Date Uzma Matos MD [address] [place] [address] PCP - General Internal Medicine 11/03/11 documented as of this encounter
--- OUTSIDE RECORDS SUMMARY | 2025-03-29 14:13 | XMS_ITS | Encounter Summary ---
Author Organization [employer] Address [address] [facility] 7t [place] [address] Care Team Providers Care Coal Unloader Name Role Phone Uzma Matos MD Primary Care Provider [phone] Josette Peterson RN Unavailable [phone] Veronika Liu Unavailable Reason for Visit * Reason Onset Date Comments Call Back Request 07/02/2024 Encounter Details Date Type Department Care Team (Late st Contact Info) Description 07/02/2024 Telephone [facility] MEDICINE [address] [place] [address] Uzma Matos MD [address] [place], [place] [phone] Call Back Request Social History Tobacco Use Types Packs/Day Years [...] AM EDT documented as of this encounter Miscellaneous Notes * Telephone Encounter - Mika Lowry - 07/02/2024 2:54 PM EST Tc from pt requesting a call back regarding a medication he is taking. Pt states it could be affecting together ones that he is currently taking and would like to Discuss his option with PCP. Pt would prefer to speak to the PCP Contact pt at [phone] documented in this encounter Plan of Treatment Not on file documented as of this encounter Visit Diagnoses Not on filedocumented in this encounter Additional Health Concerns Assessment Noted Time PHQ-9 Depression Total Score: 6 06/02/20 22 9:19 AM EST documented as of this encounter Care Teams Coal Unloader Relationship Specialty Start Date End Date Uzma Matos MD [address] [place] [address] PCP - General Internal Medicine 11/03/11 Josette Peterson RN [address] [place] [address] Registered Nurse Family Medicine 03/25/25 Veronika Liu 03/25/25 documented as of this encounter
--- OUTSIDE RECORDS SUMMARY | 2025-03-29 14:13 | XMS_ITS | Clinical Summary ---
Author Organization [employer] Address [address] [facility] 7t [place] [address] Care Team Providers Care Mergers And Acquisitions Attorney Name Role Phone Uzma Matos MD Primary Care Provider [phone] Josette Peterson RN Unavailable [phone] Veronika Liu Unavailable Allergies Active Allergy Reactions Criticality Noted Date Comments Lisinopril Cough 04/13/2018 Penicillins 11/03/2011 Other reaction(s): hives Medications EPINEPHrine (Epipen) 0.3 MG/0.3ML injection syringe Inject into the shoulder, thigh, or buttocks. 06/25/19 19 Active Elastic Bandages & Supports (Knee Stabilizer One Size) misc Active Diclofenac Sodium 1 % gelIndications:Ce rvicogenic headache,Muscle spasm TO APPLY TO THE AFFECTED AREA 3 TIMES A DAY 100 g 1 03/31/20 23 Active lidocaine (Lidoderm) 5 % patchIndications: Disorder of intervertebral disc of lumbar spine APPLY 1 PATCH EVERY DAY MAY WEAR UP TO 12 HOURS 30 patch 3 03/31/20 23 Active Alcohol Swabs 70 % padsIndications:N ew onset type 2 diabetes mellitus (HCC) Use to test blood sugar 2 times daily 100 each 11 08/03/19 24 Active TRUEplus Lancets 33G miscIndications:N ew onset type 2 diabetes mellitus (HCC) USE TO TEST BLOOD SUGAR TWICE A DAY 100 each 11 08/03/19 24 Active Blood Glucose Monitoring Suppl (FreeStyle Lite) w/Device kitIndications:Ne w onset type 2 diabetes mellitus (HCC) USE TO TEST BLOOD SUGAR 2 TIMES DAILY 1 kit 10/12/19 24 Active Diclofenac Sodium 1 % gelIndications:Ch ronic pain of left ankle To apply to the affected area 3 times a day 100 g 1 10/11/19 24 Active albuterol 108 (90 Base) MCG/ACT inhalerIndication s:SOB (shortness of breath) Inhale 2 puffs every 6 (six) hours. 18 g 11 10/11/19 24 Active Diclofenac Sodium 1 % gel TO APPLY TO THE AFFECTED AREA 3 TIMES A DAY 100 g 2 04/24/20 24 Active cetirizine (ZyrTEC) 10 MG tabletIndications :Hives TAKE 1 TABLET BY MOUTH EVERY DAY IN THE MORNING 90 tablet 3 05/01/20 24 Active ibuprofen 600 MG tabletIndications :Chronic pain of left ankle TAKE 1 TABLET (600MG) BY MOUTH EVERY 8 HOURS WITH FOOD 60 tablet 1 05/23/20 24 Active metFORMIN (Glucophage) 500 MG tabletIndications :New onset type 2 diabetes mellitus (HCC) TAKE 1 TABLET (500 MG) BY MOUTH WITH BREAKFAST AND WITH EVENING MEAL 180 tablet 3 09/03/19 25 026 Active Blood Glucose Monitoring Suppl (ONE TOUCH ULTRA 2) w/Device kitIndications:Ty pe 2 diabetes mellitus with hyperglycemia, without long-term current use of insulin (HCC) Use to test blood sugar 2 times daily 1 kit 10/10/19 25 Active econazole nitrate 1 % creamIndications: Tinea pedis of both feet Apply topically Once per day. 30 g 1 11/28/19 25 026 Active cholecalciferol (Vitamin D-3) 25 MCG (1000 UT) capsule TAKE 1 CAPSULE BY MOUTH EVERY DAY 90 capsule 1 01/07/20 25 Active losartan (Cozaar) 100 MG tabletIndications :Primary hypertension,Prim julio hypertension TAKE 1 TABLET BY MOUTH EVERY DAY 90 tablet 03/24/20 25 Active losartan (Cozaar) 100 MG tabletIndications :Primary hypertension,Prim julio hypertension TAKE 1 TABLET BY MOUTH EVERY DAY 90 tablet 12/26/19 25 025 Discontinued Active Problems Problem Noted Date Diagnosed Date Chronic migraine with aura w ithout status migrainosus, not intractable 10/11/2023 Acute pain of right knee 11/15/2022 Assessment & Plan (11/15/2022 4:22 PM EDT): Patient with chronic pain of R lower extremity with associated difficulty bearing weight. Will send for xray and MRI to [place] and refer to orthopedics. Will send x5 days of tylenol/codeine given reported not responding to NSAIDs, patient with concern for laxity of knee Disorder of intervertebral disc of lumbar spine 03/24/2022 Vitamin D deficiency 06/05/2019 Impaired fasting glucose 06/05/2019 Abnormal liver function tests 06/05/2019 Hypercholesterolemia 10/16/2014 Hypertensive disorder 10/16/2014 Obesity 11/03/2011 Enthesopathy of knee 11/03/2011 Encounters Date Type Department Care Team Description 03/29/2025 12:20 PM EDT Office Visit [facility] [address] [place] [id number] Gabriel Tang MD Anosmia (Primary Dx); Hypogeusia 03/29/2025 Travel 03/26/2025 Patient Outreach [address] [address] Uzma Matos MD Care Coordination (CM/CHW outreach) 03/25/2025 Patient Outreach [address] [address] Uzma Matos MD Care Coordination (CHW chart review) 03/25/2025 Patient Outreach [address] [address] Uzma Matos MD Care Management (C3- chart review) 03/25/2025 Patient Outreach [address] [address] Uzma Matos MD 03/24/2025 Refill [facility] CHC MED & PEDS [address] [place], [place] [phone] Sally Babcock MD Primary hypertension; Primary hypertension 03/10/[address] [address] Uzma Matos MD No Show 03/07/2025 Telephone [facility] MED & PEDS [address] [place] [address] Uzma Matos MD Chart Prep 02/24/2025 Telephone [facility] [address] [place] [address] Uzma Matos MD No Show 02/21/2025 Telephone [facility] CH[facility] MED & PEDS [address] [place] [address] Uzma Matos MD chart prep 01/03/2025 Refill [facility] CH[facility] MED & PEDS [address] [place] [address] Uzma Matos MD from Last 3 Months Immunizations Immunization Administration Dates Next Due Influenza Whole 05/15/2006 Influenza injectable quadriv alent IIV4 with preservative 04/10/2018 Influenza injectable quadriv alent preservative free 05/30/2023,08/15/2016 Moderna Covid-19 Vaccine 12+ 10/29/2020,10/02/19 21 Tdap 03/03/2024,08/15/2016,10/13/2010 Family History Medical History Relation Name Comments Diabetes Mother Heart disease Mother Bypass sx Hyperlipidemia Mother Hypertension Mother Relation Name Status Comments Mother Social History Tobacco Use Types Packs/Day Years [...] Orientation Straight 04/18/2022 10 :21 AM EDT Last Filed Vital Signs Vital Sign Reading [...] Mass Index 31.8 03/29/2025 11:57 AM EDT Plan of Treatment Health Maintenance Due Date Last Done Comments CT Colonography 1968 Colonoscopy 1968 Colorectal Cancer Screening 1968 Dental Oral Exam 1968 FIT DNA/Cologuard 1968 FIT 1968 FOBT 1968 Sigmoidoscopy 1968 Disability Screening 1968 Diabetes: Urine Protein Screening 08/31/1987 Hepatitis B Vaccines (1 of 3 - 19+ 3-dose series) 08/31/1987 Pneumococcal Vaccine: 50+ Years (1 of 2 - PCV) 08/31/1987 Zoster Vaccines (1 of 2) 2018 Lipid Panel 03/29/2023 03/29/2022, 10/01/2020 Dental Prophylaxis 07/04/2024 01/01/2024, 05/02/2023 Dental X-Ray: Bitewings 12/08/2024 12/08/19 24, 04/13/2023, 06/06/2022, Additional history exists COVID-19 Vaccine ( - season) 2025 10/29/2020, 10/01/2020 Influenza Vaccine (#1) 2025 , 04/10/2018, 08/15/2016, Additional history exists Diabetes: Hemoglobin A1C 04/10/2025 025, 12/13/2023, 08/03/2023, Additional history exists Eye Exam 07/13/2025 07/13/2023, 06/20, 07/13/2023, Additional history exists Alcohol/Substance Use Screening 11/27/2025 11/27/2024 Depression Screening 11/27/2025 11/27/2024, 11/28/19 Diabetes: Foot Exam 11/27/2025 11/27/2024, 08/03/2023, 08/03/2023, Additional history exists SDOH Screening 11/27/2025 11/27/2024 Dental X-Ray: Full Mouth 01/13/2026 01/12/2023 Tobacco Screening 03/29/2026 03/29/2025 DTaP/Tdap/Td Vaccines (4 - Td or Tdap) 03/03/2034 03/03/2024, 08/15/2016, 10/13/2010 RSV Patients and Patients Aged 60 years or older (1 - 1-dose 75+ series) 08/31/2043 HIV Screening Completed 03/29/2022, 10/01/2020 Hepatitis C Screening Completed 03/29/2022 HIB Vaccines Aged Out [...] patient's age to complete this topic Meningococcal Vaccine Aged Out No bryson monse eligible based on patient's age to complete this topic RSV under 20 months Aged Out No longe r eligible based on patient's age to complete this topic Rotavirus Vaccines Aged Out No longer eligible based on patient's age to complete this topic Procedures Procedure Name Priority Date/Time Associated Diagnosis Comments POCT RAPID COVID ANTIGEN Routine 03/29/2025 12:00 PM EDT Anosmia POCT GLYCATED HEMOGLOBIN, TOTAL Routine 10/09/2024 4:38 PM EDT Type 2 diabetes mellitus with hyperglycemia, without long-term current use of insulin ([facility]) PROPHYLAXIS - ADULT Routine 01/01/2024 1 1:00 AM EDT BITEWING - SINGLE RADIOGRAPHIC IMAGE Routine 12/08/2023 1:45 PM EDT PANORAMIC RADIOGRAPHIC IMAGE Routine 01/12/2023 1:30 PM EDT ZZZ HISTORICAL HEPATITIS C AB W/REFL TO HCV RNA, QN, PCR Routine 03/29/2022 10:11 AM EDT HIV 1/2 ANTIGEN/ANTIBODY, FOURTH GENERATION W/RFL Routine 03/29/2022 10:11 AM EDT LIPID PANEL, STANDARD Routine 03/29/2022 10:11 AM EDT from Last 3 Months or Most Recently Relevant to Health Maintenance Results * POCT Rapid Covid-19 BinaxNOW (03/29/2025 12:00 PM EDT) Rapid COVID Ag Negative QC Media Lot # [id number] Lot# Expiration Date Swab 03/29/2025 12:0 0 PM EDT Gabriel Tang MD POINT OF CARE TEST ENTER/EDIT OR DERABLES Final Result * (ABNORMAL) POCT HGB A1C (10/09/2024 4:38 PM EDT) Hemoglobin A1C 6.2(A) 4.0 - 6.0 % QC Media Lot # [id number] Lot# Expiration Date Blood 10/09/2024 4:38 PM EDT Uzma Matos MD POINT OF CARE TEST ENTER/ED IT ORDERABLES Final Result * HEPATITIS C AB W/REFL TO HCV RNA, QN, PCR (03/29/2022 10:11 AM EDT) HEPATITIS C ANTIBODY NON-REACTI VE NON-REACT PAYTON CONVERTED LEGACY LABS INDEX 0.06 <1.00 CONVERTED LEGACY LABS Comment: HCV antibody was non-reactive. There is no laboratory evidence of HCV infection. In most cases, no further action is required. However, if recent HCV exposure is suspected, a test for HCV RNA (test code 23667) is suggested. For additional information please refer to http://education.CaroGen/faq/RRC46s5 (This link is being provided for informational/ educational purposes only.) 03/29/2022 10:1 1 AM EDT us Uzma Matos MD HISTORICAL/NON ORDERABLE LA BS Final Result CONVERTED LEGACY LABS * HIV 1/2 ANTIGEN/ANTIBODY,FOURTH GENERATION W/RFL (03/29/2022 10:11 AM EDT) HIV-1/2 ANTIGEN AND ANTIBODIES, 4TH GENERATION W/ REFLEX NON-REACT PAYTON NON-REACT PAYTON CONVERTED LEGACY LABS Comment: HIV-1 antigen and HIV-1/HIV-2 antibodies were not detected. There is no laboratory evidence of HIV infection. PLEASE NOTE: This information has been disclosed to you from records whose confidentiality may be protected by state law. If your state requires such protection, then the state law prohibits you from making any further disclosure of the information without the specific written consent of the person to whom it pertains, or as otherwise permitted by law. A general authorization for the release of medical or other information is NOT sufficient for this purpose. For additional information please refer to http://education.CaroGen/faq/PFM857 (This link is being provided for informational/ educational purposes only.) The performance of this assay has not been clinically validated in patients less than 2 years old. 03/29/2022 10:1 1 AM EDT us Uzma Matos MD LAB BLOOD ORDERABLES Final Result Performing Organization Address City/State/[facility] Co de Phone Number CONVERTED LEGACY LABS * (ABNORMAL) LIPID PANEL, STANDARD (03/29/2022 10:11 AM EDT) Chol/HDLC Ratio 3.6 <5.0 (calc) CONVERTED LEGACY LABS Cholesterol, Total 178 <200 mg/dL CONVERTED LEGACY LABS HDL Cholesterol 49 > OR = 40 mg/dL CONVERTED LEGACY LABS LDL Cholesterol 106(H) mg/dL (calc) CONVERTED LEGACY LABS Comment: Reference range: <100 Desirable range <100 mg/dL for primary prevention; <70 mg/dL for patients with CHD or diabetic patients with > or = 2 CHD risk factors. LDL-C is now calculated using the Rishabh-Hicks calculation, which is a validated novel method providing better accuracy than the Friedewald equation in the estimation of LDL-C. Rishabh SHEPARD et al. RACHEL. 2013;310(19): 2996-8970 (http://education.WhoKnows.PowerPractical/faq/BFR251) Non-HDL Cholesterol 129 <130 mg/dL (calc) CONVERTED LEGACY LABS Comment: For patients with diabetes plus 1 major ASCVD risk factor, treating to a non-HDL-C goal of <100 mg/dL (LDL-C of <70 mg/dL) is considered a therapeutic option. Triglycerides 129 <150 mg/dL CONVE RTED LEGACY LABS 03/29/2022 10:1 1 AM EDT us Uzma Matos MD LAB BLOOD ORDERABLES Final Result CONVERTED LEGACY LABS from Last 3 Months or Most Recently Relevant to Health Maintenance Insurance [facility] MEDICAID STAND ADULT * Guarantor: Ty Quijano Account Type Relation to Patient Date of Phone Billing Address Personal/[place] [address] * Guarantor: Ty Quijano Account Type Relation to Patient Date of Phone Billing Address Personal/[place] [address] * Guarantor: Ty Quijano Account Type Relation to Patient Date of Phone Billing Address Personal/Family Self [place] Care Teams Mergers And Acquisitions Attorney Relationship Specialty Start Date End Date Uzma Matos MD [address] [place] [address] PCP - General Internal Medicine 11/03/11 Josette Peterson RN [address] [place] [address] Registered Nurse Family Medicine 03/25/25 Veronika Liu 03/25/25
--- OUTSIDE RECORDS SUMMARY | 2025-03-29 14:13 | XMS_ITS | Encounter Summary ---
Author Organization [employer] Address [address] [facility] 7t [place] [address] Care Team Providers Care Photostatic Copy Maker Name Role Phone Uzma Matos MD Primary Care Provider [phone]- [phone] Josette Peterson RN Unavailable [phone] Veronika Liu Unavailable Encounter Details Date Type Department Care Team ([facility] st Contact Info) Description 09/05/2023 Orders Only [facility] MED [facility] PEDS [address] [place], [place] [id number] Uzma Matos MD [address] [place], [place] [id number] Folic acid deficiency (Primary Dx) Social History Tobacco Use Types [...] the past 12 months, has t he [employer], gas, oil or water company threatened to [...] as of this encounter Visit Diagnoses Diagnosis Folic acid deficiency- Primary Other B-complex deficiencies documented in this encounter Additional Health Concerns Assessment Noted Time PHQ-9 Depression Total Score: 6 06/02/20 22 9:19 AM EST documented as of this encounter Care Teams Photostatic Copy Maker Relationship Specialty Start Date End Date Uzma Matos MD [address] [place] [address] PCP - General Internal Medicine 11/03/11 Josette Peterson RN [address] [place] [address] Registered Nurse Family Medicine 03/25/25 Veronika Liu 03/25/25 documented as of this encounter
--- OUTSIDE RECORDS SUMMARY | 2025-03-29 14:13 | XMS_ITS | Encounter Summary ---
Author Organization [employer] Address [address] [facility] 7[address] [place] [address] Care Team Providers Care Glassware Maker Name Role Phone Uzma Matos MD Primary Care Provider [phone] Josette Peterson RN Unavailable Veronika Liu Unavailable Reason for Visit * Reason Comments Care Coordination CM/CHW outreach Encounter Details Date Type Department Care Team (Latest Contact Info) Description 03/26/2025 Patient Outreach [facility] MEDICINE [address] [place] [address] Uzma Matos MD [address] [place] [address] Care Coordination (CM/CHW outreach) Social History Tobacco Use Types Packs/Day Years [...] as of this encounter Progress Notes * Veronika Liu - 03/26/2025 2:02 PM EDT CHW Veronika Liu, placed outbound call to patient introducing herself from [facility] CM Department, in regards to offering services. Patient's name and was confirmed. Patient agreesto participate in program. Appt. for initial assessment scheduled for 04/10/25 @ 10AM tele with ARIC Peterson RN. CHW reinforced direct contact information or CM forany additional questions or concerns and extended clinic hours on Mondays and Wednesdays, and Walk-In Urgent Care Located in [facility] of [facility]. Patient provided with after-hours line for [facility], , which offer night time triage service and option to transfer to dictaphone technician provider if needed. Patient verbalizes understanding, and able to repeat back to copy writer. documented in this encounter Plan of Treatment Not on file documented as of this encounter Visit Diagnoses Not on filedocumented in this encounter Additional Health Concerns Assessment Noted Time PHQ-9 Depression Total Score: 8 11/28/19 10:42 AM EDT documented as of this encounter Care Teams Glassware Maker Relationship Specialty Start Date End Date Uzma Matos MD [address] [place] [address] PCP - General Internal Medicine 11/03/11 Josette Peterson RN [address] [place] [address] Registered Nurse Family Medicine 03/25/25 Veronika Liu 03/25/25 documented as of this encounter
--- OUTSIDE RECORDS SUMMARY | 2025-03-29 14:13 | XMS_ITS | Encounter Summary ---
Author Organization [employer] Address [address] [facility] 7t [place] [address] Care Team Providers Care Landscape Supervisor Name Role Phone Uzma Matos MD Primary Care Provider [phone] Josette Peterson RN Unavailable [phone] Veronika Liu Unavailable Reason for Visit * Reason Comments Care Coordination CHW chart review Encounter Details Date Type Department Care Team (Latest Contact Info) Description 03/25/2025 Patient Outreach [facility] MEDICINE [address] [place] [address] Uzma Matos MD [address] [place] [address] Care Coordination (CHW chart review) Social History Tobacco Use Types [...] encounter Progress Notes * Veronika Liu - 03/25/2025 12:47 PM EDT CM/C3 CHW Veronika Liu Chart Review CHW Veronika Liu reviewed chart review completed by ARIC Peterson RN ARIC Peterson RN, performed chart review, in [...] with aura without status migrainosus. Specialists include [facility] Cardiology and Ortho. ED visits within the [...] documented as of this encounter Care Teams Landscape Supervisor Relationship Specialty Start Date End Date Uzma Matos MD [address] [place] [address] PCP - General Internal Medicine 11/03/11 Josette Peterson RN [address] [place] [address] Registered Nurse Family Medicine 03/25/25 Veronika Liu 03/25/25 documented as of this encounter
--- OUTSIDE RECORDS SUMMARY | 2025-03-29 14:13 | XMS_ITS | Encounter Summary ---
Author Organization [employer] Address [address] [facility] [address] [place] [address] Care Team Providers Care Edging Catcher Name Role Phone Uzma Matos MD Primary Care Provider [phone]- [phone] Josette Peterson RN Unavailable [phone] Veronika Liu Unavailable Encounter Details Date Type Department Care Team (Late st Contact Info) Description 03/25/2025 Patient Outreach [facility] MEDICINE [address] [place] [address] Uzma Matos MD [address] [place] [address] Social History Tobacco Use Types Packs/Day Years [...] documented as of this encounter Care Teams Edging Catcher Relationship Specialty Start Date End Date Uzma Matos MD [address] [place] [address] PCP - General Internal Medicine 11/03/11 Josette Peterson, SAAD [address] [place] [address] Registered Nurse Family Medicine 03/25/25 Veronika Liu 03/25/25 documented as of this encounter
--- OUTSIDE RECORDS SUMMARY | 2025-03-29 14:13 | XMS_ITS | Encounter Summary ---
Author Organization [employer] [facility] Address [address] [place] [address] Care Team Providers Care Freight Separator Name Role Phone Uzma Matos MD Primary Care Provider [phone]- [phone] Josette Peterson RN Unavailable [phone] Veronika Liu Unavailable Encounter Details Date Type Department Care Team (Latest Contact Info) Description 11/10/2020 Abstract [facility] CONVERSIONS Dental, Provider, DDS Social History Tobacco Use Types Packs/Day Years [...] Diagnoses Not on filedocumented in this encounter Care Teams Freight Separator Relationship Specialty Start Date End Date Uzma Matos MD [address] [place] [address] PCP - General Internal Medicine 11/03/11 Josette Peterson, SAAD [address] [place] [address] Registered Nurse Family Medicine 03/25/25 Veronika Liu 03/25/25 documented as of this encounter
--- OUTSIDE RECORDS SUMMARY | 2025-03-29 14:13 | XMS_ITS | Encounter Summary ---
Author Organization [employer] Address [address] [facility] [address] [place] [address] Care Team Providers Care Web Applications Developer Name Role Phone Uzma Matos MD Primary Care Provider [phone] Josette Peterson RN Unavailable [phone] Veronika Liu Unavailable Reason for Visit * Reason Onset Date Comments Nurse Triage 10/02/2024 ER Follow-up 10/02/2024 Encounter Details Date Type Department Care Team (Late st Contact Info) Description 10/02/2024 Telephone [facility] MEDICINE [address] [place] [address] Uzma Matos MD [address] [place] [address] Nurse Triage; ER Follow-up Social History Tobacco Use Types Packs/Day Years [...] encounter Miscellaneous Notes * Telephone Encounter - Mei Arias RN - 10/02/2024 11:42 AM EDT Triage call Pt reports seen in [facility] for chest pain 09/27/24. Report is not on the chart and will be requested. Pt reports had some chest pain last week. Pt reports a in the family which caused increased stress and this could be why the chest pain occurred. Pt reports has had tingling sensation in left hand reported at last OV 07/15/24. Pt is reports no chest pain at time of call and requests to see PCP. Offered an apt 10/03/24 at 945am with PCP but, is unable to come at this time. ASK apt with Dr. Matos 10/09/24 @ 400pm. Pt agrees with disposition. Insurance is verified as active prior tobooking. Pt requested to speak with metalizing supervisor regarding long wait times when calling. Pt is advised literary writer will send a message to [facility] superviser. Pt requested to speak with [facility] superviser. Pt is advised will send message to start in [facility] where Pt is seen. Protocol Used: Chest Pain (Adult) Protocol-Based Disposition: See in Office or Video Visit Today Override (Final) Disposition: See in Office or Video Visit within 2 Weeks Override Reason: No appointments available Override Notes: ED follow up Video visit not offered Positive Triage Question: * All other patients with chest pain (Exception: Fleeting chest pain lasting a few seconds.) * All higher-acuity triage questions were negative Care Advice Discussed: * Reasons To Call Back - Chest pain increases in frequency, duration or severity - Chest pain lasts over 5 minutes - Chest pains persist over 3 days - Difficulty breathing or unusual sweating occurs - Fever over 100.4 F (38.0 C) - You become worse * Telephone Encounter - Denice Chong - 10/02/2024 10:58 AM EDT Patient calling to report ED visit on : Date: 09/27 Hospital: [facility] ER Seen for: Chest Pain Symptomatic Yes *if yes message should go to Triage Patient advised will forward to team nurse for follow up [phone] documented in this encounter Plan of Treatment Not on file documented as of this encounter Visit Diagnoses Not on filedocumented in this encounter Additional Health Concerns Assessment Noted Time PHQ-9 Depression Total Score: 0 07/15/19 25 10:42 AM EST documented as of this encounter Care Teams Web Applications Developer Relationship Specialty Start Date End Date Uzma Matos MD [address] [place] [address] PCP - General Internal Medicine 11/03/11 Josette Peterson RN [address] [place] [address] Registered Nurse Family Medicine 03/25/25 Veronika Liu 03/25/25 documented as of this encounter
[2025-03-29 15:19] LABS: MANUAL DIFF FLAG NO
[2025-03-29 15:28] LABS: Hematocrit 46.7 % (42.0-52.0); Hemoglobin 16.2 g/dl (14.0-18.0); Imm Gran Abs Auto 0.02 X10*3/uL (0.00-0.03); Imm Gran Pct Auto 0.3 % (0.0-0.4); Lymphocytes Absolute Auto 2.0 X10*3/uL (1.2-4.9); Mean Corpuscular HGB Conc 34.7 g/dl (31.0-36.0); Mean Corpuscular Hemoglobin 29.9 pg (27.0-33.0); Mean Corpuscular Volume 86.3 fL (80.0-98.0); NRBC Abs Auto 0.000 X10*3/uL (0.0-0.012); NRBC Pct Auto 0.0 /100WBC (0.0-0.2); Platelet Count 199 X10*3/uL (160-400); Red Blood Count 5.41 X10*6/uL (4.60-5.80); White Blood Count 7.8 X10*3/uL (4.8-10.8)
[2025-03-29 16:01] LABS: Alanine Aminotransferase 44 U/L (0-40); Albumin Level 4.8 g/dL (3.5-5.0); Anion Gap 15 (12-20); Aspartate Amino Transferase 34 U/L (5-37); Blood Urea Nitrogen 22 mg/dL (9-16); Calcium 10.1 mg/dL (8.4-10.2); Carbon Dioxide 25 mmol/L (22-29); Chloride 109 mmol/L (96-108); Estimated Glomerular Filt Rate > 60; Potassium 3.8 mmol/L (3.3-5.1); Sodium 145 mmol/L (135-145); Total Protein 7.3 g/dL (6.5-8.0)
[2025-03-29 16:17] LABS: Alkaline Phosphatase 172 U/L (39-117)
[2025-03-29 16:18] LABS: Folate 8.3 ng/mL (> or = 4.0); Vitamin B12 252 pg/mL (200-900)
[2025-04-04 09:44] LABS: Anti Nuclear Antibody Screen NEGATIVE (NEGATIVE)
== END 2025-03-29 14:10 | disposition home or self-care (01) ==
LOC: HO.HMGCLDS 14:09
PROVIDERS: PCP Internal Medicine; Visit Provider Family Medicine
DX: Z01.84 Encounter for antibody response examination (principal); R43.0 Anosmia
CPT/HCPCS: 36415; 80053; 82607; 82746; 84443; 84630; 85025; 85652; 86038; 86140